=== PATIENT | female | born 1970 | race Caucasian/White ===

== ENCOUNTER → 2016-10-26 | Outpatient (CLI) | payer OTHER ==
--- NOTE | 2016-10-26 14:35 | KCIC ---
PROCEDURE Lumbar spine radiographs HISTORY Low back pain for 2 months, no known injury COMPARISON None FINDINGS Five views of the lumbar spine are submitted. Lumbar vertebral body stature and AP alignment are adequate. Intervertebral disc spaces are adequate. No acute osseous abnormality is identified by radiographs. IMPRESSION No acute osseous abnormality is identified by radiographs. Electronically signed by: Nish Miller MD (Oct 26, 2016 14:33:49)
== END | disposition home or self-care (01) ==
LOC: KCIC 11:48
PROVIDERS: ATTEND Family Medicine
DX: M54.5 Low back pain (principal)
CPT/HCPCS: 72110